=== PATIENT | male | born 1975 | race Asian ===

== ENCOUNTER 2018-02-24 13:03 | Emergency (ER) | payer OTHER ==
[2018-02-24 13:11] VITALS: BP 123/87; PULSE 70; TEMP 97.6; BMI 28.7
[2018-02-24] MEDS ORDERED: KETOROLAC TROMETHAMINE 60 MG/2 ML VIAL IM ONE (14:12)
[2018-02-24] MEDS ORDERED: KETOROLAC TROMETHAMINE 60 MG/2 ML VIAL ONE (14:16)
[2018-02-24 14:28] LABS: URINE APPEARANCE CLEAR; URINE BILIRUBIN NEGATIVE (<2.0 mg/dL); URINE COLOR LTYELLOW; URINE GLUCOSE (UA) NEGATIVE (NEGATIVE); URINE KETONE NEGATIVE (NEGATIVE); URINE LEUK ESTERASE NEGATIVE (NEGATIVE); URINE NITRITE NEGATIVE (NEGATIVE); URINE PROTEIN NEGATIVE (NEGATIVE); URINE UROBILINOGEN NEGATIVE mg/dL (0.2-1.0)
[2018-02-24 14:33] LABS: URINE MUCUS RARE
--- NOTE | 2018-02-24 16:53 | PDOC ---
History of Present Illness - General Chief Complaint: Back Pain Stated Complaint: BACK PAIN Time Seen by Provider: 02/24/18 14:02 History Source: Patient Exam Limitations: No Limitations - History of Present Illness Initial Comments: 02/24/18 16:49 42 yr male with right lower back pain comes and goes since 2am sharp in nature. no fever , has nausea at times. Past History - Past Medical History Allergies/Adverse Reactions: Allergies Allergy/AdvReac Type Severity Reaction Status Date / Time No Known Allergies Allergy Verified 02/24/18 13:05 Home Medications: Ambulatory Orders Ciprofloxacin [Cipro (Restricted To Id)] 250 mg PO BID #6 tablet 02/24/18 Tamsulosin HCl [Flomax] 0.4 mg PO HS #7 cap.er.24h 02/24/18 COPD: No - Immunization History Immunization Up to Date: Yes - Suicide/Smoking/Psychosocial Hx Smoking History: Never smoked Hx Alcohol Use: No Drug/Substance Use Hx: No *Physical Exam - Vital Signs Last Vital Signs Temp Pulse Resp BP Pulse Ox 97.6 F 70 18 123/87 98 02/24/18 13:06 02/24/18 13:06 02/24/18 13:06 02/24/18 13:06 02/24/18 13:06 - Physical Exam General Appearance: Yes: Nourished, Appropriately Dressed HEENT: positive: EOMI, NAVEEN Respiratory/Chest: positive: Lungs Clear, Normal Breath Sounds Cardiovascular: positive: Regular Rhythm, Regular Rate Gastrointestinal/Abdominal: positive: Normal Bowel Sounds, Soft Rectal Exam: positive: deferred Musculoskeletal: positive: Normal Inspection. 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 NML intact, Fully Oriented, Alert, Normal Mood/ Affect, Motor Strength /5 ED Treatment Course - ADDITIONAL ORDERS Additional order review: Laboratory Results 02/24/18 14:00 Urine Color Ltyellow Urine Appearance Clear Urine pH 5.0 Ur Specific Gregory 1.017 Urine Protein Negative Urine Glucose (UA) Negative Urine Ketones Negative Urine Blood 3+ H Urine Nitrite Negative Urine Bilirubin Negative Urine Urobilinogen Negative Ur Leukocyte Esterase Negative Urine WBC (Auto) 1 Urine RBC (Auto) 4 Urine Mucus Rare - RADIOLOGY Radiology Studies Ordered: Category Date Time Status SPIRAL- RENAL-STONE CT [CT] Stat CT Scan 02/24/18 14:36 Completed - Medications Given in the ED: ED Medications Discontinued Medications Generic Name Dose Route Start Last Admin Trade Name Fito PRN Reason Stop Dose Admin Ketorolac Tromethamine 60 mg 02/24/18 14:12 02/24/18 14:19 Toradol Injection - IM 02/24/18 14:13 60 mg ONCE ONE Administration Medical Decision Making - Medical Decision Making 02/24/18 16:50 cc: right flank pain since 2am on and off took motrin with some relief will check UA possible renal colic neg abd pain neg cva tenderness *DC/Admit/Observation/Transfer Diagnosis at time of Disposition: Renal colic on right side - Discharge Dispostion Disposition: HOME Condition at time of disposition: Good - Prescriptions Prescriptions: Ciprofloxacin [Cipro (Restricted To Id)] 250 mg PO BID #6 tablet Tamsulosin HCl [Flomax] 0.4 mg PO HS #7 cap.er.24h - Referrals Referrals: Reid Quintero MD., MD [Staff Physician] - - Patient Instructions Additional Instructions: drink pleanty of fluids to stay hydrated take the medications as directed strain all urine please follow with the urologist call tomorrow to make appointment take the medications as prescribed take ibuprofen 800mg every 8hrs for pain as needed Return if any worsening symptoms - Post Discharge Activity
== END 2018-02-24 16:59 | disposition home or self-care (01) ==
LOC: JERFT 13:03
PROC: 3E0233Z Introduction of Anti-inflammatory into Muscle, Percutaneous Approach (ICD-10-PCS; principal; 2018-02-24)
DX: N23 Unspecified renal colic (principal)
CPT/HCPCS: 74176; 81003; 81015; 99281-25

== ENCOUNTER 2020-10-02 06:51 | Emergency (ER) | payer OTHER ==
[2020-10-02] MEDS ORDERED: KETOROLAC TROMETHAMINE 15 MG/ML VIAL IVPUSH ONE (06:54)
[2020-10-02] MEDS ORDERED: ONDANSETRON 4 MG/2 ML VIAL IVPUSH ONE (06:54)
[2020-10-02] MEDS ORDERED: ONDANSETRON 4 MG/2 ML VIAL ONE (06:58)
[2020-10-02] MEDS ORDERED: KETOROLAC TROMETHAMINE 15 MG/ML VIAL ONE (06:59)
[2020-10-02] MEDS ORDERED: SODIUM CHLORIDE 1,000 ML IV STA (07:02)
[2020-10-02 07:14] VITALS: BMI 29.4
[2020-10-02] MEDS ORDERED: morphine SULFATE 4 MG/ML VIAL ONE (07:40)
[2020-10-02] MEDS ORDERED: morphine CARPU-JECT 4 MG/1 ML DISP.SYRIN IVPUSH ONE (07:44)
[2020-10-02 07:54] LABS: BASO % 0.5 % (0-2.0); EOS % 0.3 % (0-4.5); HEMATOCRIT 48.2 % (35.4-49); HEMOGLOBIN 16.3 GM/dl (11.7-16.9); LYMPH % 15.3 % (8-40); MCHC 33.8 g/dl (32.0-35.9); MEAN CELL VOLUME 88.7 fl (80-96); MEAN PLT VOLUME 7.4 fl (7.5-11.1); MONO % 6.3 % (3.8-10.2); NEUT % 77.6 % (42.8-82.8); PLATELET COUNT 287 K/MM3 (134-434); RBC 5.44 M/mm3 (4.00-5.60); RDW 11.9 % (11.9-15.9); WHITE BLOOD COUNT 10.6 K/mm3 (4.0-10.8)
[2020-10-02 08:10] LABS: ALBUMIN 4.5 g/dl (3.4-5.0); BILIRUBIN,TOTAL 0.9 mg/dl (0.2-1); CALCIUM 8.8 mg/dl (8.5-10); CREATININE 0.9 mg/dl (0.55-1.3); TOT PROT 7.3 g/dl (6.4-8.2)
[2020-10-02 08:37] LABS: EPITHELIAL CELLS RARE /hpf
[2020-10-02 10:24] VITALS: BP 134/98; PULSE 68; TEMP 98.1
== END 2020-10-02 10:24 | disposition home or self-care (01) ==
LOC: FER 06:51
PROC: 3E0333Z Introduction of Anti-inflammatory into Peripheral Vein, Percutaneous Approach (ICD-10-PCS; principal; 2020-10-02)
PROC: 3E033NZ Introduction of Analgesics, Hypnotics, Sedatives into Peripheral Vein, Percutaneous Approach (ICD-10-PCS; 2020-10-02)
PROC: 3E033GC Introduction of Other Therapeutic Substance into Peripheral Vein, Percutaneous Approach (ICD-10-PCS; 2020-10-02)
PROC: 3E0337Z Introduction of Electrolytic and Water Balance Substance into Peripheral Vein, Percutaneous Approach (ICD-10-PCS; 2020-10-02)
DX: N23 Unspecified renal colic (principal)
CPT/HCPCS: 36415; 74176-TC; 76775-TC; 80053; 81003; 81015; 85025; 87077; 87086; 99284-25

== ENCOUNTER 2020-10-04 06:16 | Inpatient (IN) | payer OTHER ==
[2020-10-04] MEDS ORDERED: ONDANSETRON 4 MG/2 ML VIAL IVPB ONE (06:37)
[2020-10-04] MEDS ORDERED: SODIUM CHLORIDE 1,000 ML ONE (06:37)
[2020-10-04] MEDS ORDERED: PANTOPRAZOLE SODIUM 40 MG VIAL IVPUSH ONE (06:38)
[2020-10-04] MEDS ORDERED: PANTOPRAZOLE SODIUM 40 MG VIAL ONE (06:50)
[2020-10-04] MEDS ORDERED: ONDANSETRON 4 MG/2 ML VIAL ONE (06:50)
[2020-10-04 07:42] LABS: BASO % 0.9 % (0-2.0); HEMATOCRIT 43.8 % (35.4-49); LYMPH % 7.7 % (8-40); MCH 30.3 pg (25.7-33.7); MCHC 34.2 g/dl (32.0-35.9); MEAN CELL VOLUME 88.7 fl (80-96); MEAN PLT VOLUME 7.8 fl (7.5-11.1); MONO % 5.2 % (3.8-10.2); NEUT % 86.2 % (42.8-82.8); PLATELET COUNT 244 K/MM3 (134-434); RBC 4.94 M/mm3 (4.00-5.60); RDW 11.8 % (11.9-15.9); WHITE BLOOD COUNT 12.6 K/mm3 (4.0-10.8)
[2020-10-04 07:45] LABS: ALBUMIN 3.6 g/dl (3.4-5.0); CALCIUM 8.4 mg/dl (8.5-10); CREATININE 1.2 mg/dl (0.55-1.3); TOT PROT 6.3 g/dl (6.4-8.2)
[2020-10-04 08:09] LABS: INR 1.16 (0.82-1.09); PROTHROMBIN TIME (PATIENT) 12.9 SEC (10.2-13.0)
[2020-10-04] MEDS ORDERED: PANTOPRAZOLE SODIUM 80 MG in SODIUM CHLORIDE 100 ML IVPB SCH (09:00)
[2020-10-04] MEDS ORDERED: LACTATED RINGERS SOLUTION 1,000 ML/1,000 ML INFUS.BAG IV SCH (09:30)
[2020-10-04 09:52] LABS: EPITHELIAL CELLS FEW /hpf
[2020-10-04] MEDS ORDERED: PROPOFOL 20 ML ONE ×2 (13:05)
[2020-10-04] MEDS ORDERED: LIDOCAINE HCL/PF 2% SDV 5ML VIAL ONE (13:05)
[2020-10-04] MEDS ORDERED: TAMSULOSIN HCL 0.4 MG CAP PO SCH (18:30)
[2020-10-04] MEDS: PANTOPRAZOLE 40 MG TABLET PO SCH (21:04)
[2020-10-05 08:06] LABS: EOS % 0.3 % (0-4.5); HEMATOCRIT 40.2 % (35.4-49); HEMOGLOBIN 13.2 GM/dl (11.7-16.9); LYMPH % 27.7 % (8-40); MCH 29.3 pg (25.7-33.7); MCHC 32.9 g/dl (32.0-35.9); MEAN CELL VOLUME 89.1 fl (80-96); MEAN PLT VOLUME 7.1 fl (7.5-11.1); MONO % 7.2 % (3.8-10.2); NEUT % 63.8 % (42.8-82.8); PLATELET COUNT 254 K/MM3 (134-434); RBC 4.51 M/mm3 (4.00-5.60); RDW 12.2 % (11.9-15.9); WHITE BLOOD COUNT 5.9 K/mm3 (4.0-10.8)
[2020-10-05 08:21] LABS: ALBUMIN 3.2 g/dl (3.4-5.0); CALCIUM 8.3 mg/dl (8.5-10); CREATININE 1.1 mg/dl (0.55-1.3); MAGNESIUM 1.9 mg/dL (1.8-2.4); TOT PROT 5.7 g/dl (6.4-8.2)
[2020-10-05 09:34] VITALS: BP 122/76; PULSE 83; TEMP 98.5
[2020-10-05] MEDS: PANTOPRAZOLE 40 MG TABLET PO SCH (09:57)
== END 2020-10-05 10:40 | disposition home or self-care (01) | DRG 378 ==
LOC: FER 06:16 → FM/S 12:10
PROVIDERS: ADMIT Internal Medicine; ATTEND Nurse Practitioner Family
PROC: 0W3P8ZZ Control Bleeding in Gastrointestinal Tract, Via Natural or Artificial Opening Endoscopic (ICD-10-PCS; 2020-10-04)
PROC: 0DB68ZX Excision of Stomach, Via Natural or Artificial Opening Endoscopic, Diagnostic (ICD-10-PCS; principal; 2020-10-04 13:15)
DX: K25.4 Chronic or unspecified gastric ulcer with hemorrhage (principal); N13.2 Hydronephrosis with renal and ureteral calculous obstruction; R11.2 Nausea with vomiting, unspecified; K29.80 Duodenitis without bleeding; K20.90 Esophagitis, unspecified without bleeding; Z79.1 Long term (current) use of non-steroidal anti-inflammatories (NSAID)
CPT/HCPCS: 36415; 80053; 81003; 81015; 82272; 82360; 83605; 83690; 83735; 85025; 85610; 88305-TC; 93005; 99285-25; C9803; U0003; U0005